=== PATIENT | male | born 1995 | race American Indian/Alaskan Native ===

== ENCOUNTER 2016-12-26 14:37 | Emergency (ER) | payer MEDICAID ==
[2016-12-26 15:11] VITALS: BP 128/66
--- NOTE | 2016-12-27 00:18 | EDM.PDOC ---
ED HPI GENERAL MEDICAL PROBLEM - General Chief Complaint: General Stated Complaint: PAIN IN LEGS Time Seen by Provider: 12/26/16 14:40 Source of Information: Reports: Patient History Limitations: Reports: No Limitations - History of Present Illness INITIAL COMMENTS - FREE TEXT/NARRATIVE: According to patient he has been having pain in his thighs since 10 Pm last night. He claims that most of the pain is in the front of the thigh and hurts to touch or pressure. he is able to walk. No swelling or redness over the thighs. Pt claims that he does not play basketball. But yesterday, he was playing basketball for a long time and went to bed, and started to have pain in the thighs. Past Medical History - Past Health History Medical/Surgical History: Denies Medical/Surgical History ED ROS GENERAL - Review of Systems Review Of Systems: See Below Constitutional: Denies: Fever, Chills HEENT: Denies: Throat Pain, Throat Swelling Respiratory: Denies: Shortness of Breath, Wheezing, Cough, Sputum Cardiovascular: Denies: Chest Pain, Lightheadedness Endocrine: Denies: Fatigue Musculoskeletal: Denies: Neck Pain, Shoulder Pain, Arm Pain, Back Pain, Joint Pain, Joint Swelling ED EXAM, GENERAL - Physical Exam Exam: See Below Exam Limited By: No Limitations General Appearance: Alert, WD/WN, No Apparent Distress Eye Exam: Bilateral Eye: EOMI, PERRL Ears: Normal External Exam, Normal Canal, Hearing Grossly Normal, Normal TMs Ear Exam: Bilateral Ear: Auricle Normal, Canal Normal, TM normal Nose: Normal Inspection Throat/Mouth: Normal Inspection, Normal Lips, Normal Teeth, Normal Gums, Normal Oropharynx, Normal Voice, No Airway Compromise Head: Atraumatic, Normocephalic Neck: Normal Inspection, Supple, Non-Tender, Full Range of Motion Respiratory/Chest: No Respiratory Distress, Lungs Clear, Normal Breath Sounds, No Accessory Muscle Use, Chest Non-Tender Cardiovascular: Normal Peripheral Pulses, Regular Rate, Rhythm, No Edema, No Gallop, No JVD, No Murmur, No Rub Extremities: Normal Inspection, Normal Range of Motion, No Pedal Edema, Normal Capillary Refill, Other (Pty is tender over both the quadriceps muscle to palpation. No muscle spasms. Able to walk without discomfort) Course - Vital Signs Text/Narrative:: Pt reassured that he has pain in his quadriceps muscles of both thigh, form over use. As he claims that he does not play basketball regularly and played it for long time yesterday and following which the pain has started. I have advised him to take motirn 800mg 3 times daily. do some simple quadriceps stretching exercise and the pain should gradually resolve Last Recorded V/S: Last Vital Signs Temp 97.2 F 12/26/16 15:19 Pulse 84 12/26/16 15:19 Resp 16 12/26/16 15:19 BP 128/66 12/26/16 15:19 Pulse Ox 99 12/26/16 15:19 Departure - Departure Time of Disposition: 14:55 Disposition: Home, Self-Care 01 Condition: Good Clinical Impression: Quadriceps strain - Discharge Information Instructions: Quadriceps Strain With Rehab-SportsMed Referrals: PCP,None [Primary Care Provider] - Forms: ED Department Discharge Care Plan Goals: May take motrin 600mg three times a day for 5 days if needed for pain. May use heat on extremities 10-15 min three times a day. - Problem List & Annotations (1) Quadriceps strain SNOMED Code(s): 849636064 Code(s): S76.119A - STRAIN OF UNSP QUADRICEPS MUSCLE, FASCIA AND TENDON, INIT Status: Acute - Problem List Review Problem List Initiated/Reviewed/Updated: Yes - Assessment/Plan Assessment:: B/l Quadriceps strain Plan: Pt reassured that he has pain in his quadriceps muscles of both thigh, form over use. As he claims that he does not play basketball regularly and played it for long time yesterday and following which the pain has started. I have advised him to take motirn 800mg 3 times daily. do some simple quadriceps stretching exercise and the pain should gradually resolve. Advised to followup with his primary care provider, if not better in few days.
== END 2016-12-26 15:24 | disposition home or self-care (01) ==
LOC: LB.ED 14:37
DX: S76.112A Strain of left quadriceps muscle, fascia and tendon, initial encounter (principal); S76.111A Strain of right quadriceps muscle, fascia and tendon, initial encounter; X50.9XXA Other and unspecified overexertion or strenuous movements or postures, initial encounter; Y93.67 Activity, basketball
CPT/HCPCS: 99283